=== PATIENT | female | born 2000 | race American Indian/Alaskan Native ===

== ENCOUNTER 2019-02-28 17:03 | Outpatient (CLI) | payer MEDICAID ==
[2019-02-28 17:43] VITALS: BP 136/88
== END 2019-02-28 18:20 | disposition home or self-care (01) ==
LOC: TRG 17:03
PROVIDERS: ATTEND Obstetrics & Gynecology
DX: O47.1 False labor at or after 37 completed weeks of gestation (principal); Z3A.38 38 weeks gestation of pregnancy
CPT/HCPCS: 59025

== ENCOUNTER 2020-03-09 09:55 | Emergency (ER) | payer MEDICAID, OTHER ==
[2020-03-09] MEDS ORDERED: ACETAMINOPHEN 325 MG TAB PO ONE (15:20)
--- NOTE | 2020-03-09 15:22 | Emergency Department Report ---
ED General Adult HPI - General Chief complaint: Weakness Stated complaint: JEREMY/CHILLS Time Seen by Provider: 03/09/20 15:15 Source: patient, EMS Mode of arrival: Ambulatory Limitations: No Limitations - History of Present Illness Initial comments: 19-year-old female complaining of left flank flank pain. Chest pain with deep breaths only. She reports a history of kidney stones. She is complains of nausea but no vomiting and no diarrhea and no abdominal pain just left flank pain. She had reports no recent illness she is not on any control and no recent surgeries. She denies cough she denies sore throat she denies any urinary symptoms and no URI symptoms her pain is a 7/10. Patient in no acute distress -: days(s) (3) Radiation: non-radiation, flank (Left) Quality: aching Improves with: none Worsens with: none Associated Symptoms: chest pain (Chest pain with inspiration only), nausea/ vomiting. denies: cough, diaphoresis, fever/chills, headaches, loss of appetite, malaise, rash, seizure, shortness of breath, syncope Treatments Prior to Arrival: none - Related Data Previous Rx's Medication Instructions Recorded Last Taken Type HYDROcodone/APAP 5-325 [[place] 2 each PO Q6H PRN 28 Days tablet 12/12/13 Unknown Rx 5-325 mg TAB] Ibuprofen [Motrin 600 MG tab] 600 mg PO Q6HR #30 tablet 12/12/13 Unknown Rx Vit-Fe Fumar-FA [ 1 each PO QDAY #60 tablet 12/12/13 Unknown Rx Vitamin] DOXYCYCLINE Hyclate [Vibramycin 100 mg PO Q12HR #14 capsule 01/28/18 Unknown Rx CAP] Naproxen [Naprosyn] 500 mg PO BID #20 tablet 01/28/18 Unknown Rx traMADoL [Ultram] 50 mg PO Q6HR PRN #7 tablet 01/28/18 Unknown Rx cephALEXin [Keflex] 500 mg PO Q12HR #14 cap 03/09/20 Unknown Rx Allergies Allergy/AdvReac Type Severity Reaction Status Date / Time Latex, Natural Rubber AdvReac Severe Anaphylaxis Verified 02/28/19 18:11 iv contrast Allergy Severe Shortness Uncoded 02/28/19 18:11 of Breath ED Review of Systems ROS: Stated complaint: JEREMY/CHILLS Other details as noted in HPI Comment: All other systems reviewed and negative Constitutional: malaise. denies: chills, fever Eyes: denies: eye pain, vision change ENT: denies: ear pain, throat pain, dental pain, hearing loss Respiratory: denies: cough, orthopnea, shortness of breath, SOB with exertion, wheezing Cardiovascular: denies: palpitations, dyspnea on exertion, orthopnea, edema, syncope, paroxysmal nocturnal dyspnea, other Endocrine: no symptoms reported Gastrointestinal: other (Left flank pain) Genitourinary: denies: urgency, dysuria, hematuria, discharge Musculoskeletal: denies: back pain Neurological: denies: headache, weakness, numbness, paresthesias Psychiatric: denies: anxiety, depression, auditory hallucinations, visual hallucinations, homicidal thoughts ED Past Medical Hx - Past Medical History Previous Medical History?: Yes Hx Hypertension: No Hx Congestive Heart Failure: No Hx Diabetes: No Hx Deep Vein Thrombosis: No Hx Renal Disease: No Hx Sickle Cell Disease: No Hx Seizures: No Hx Kidney Stones: Yes Hx Asthma: Yes Hx COPD: No Additional medical history: bronchitis, Vagianl delivery x 1 - Surgical History Past Surgical History?: Yes Hx Cholecystectomy: Yes Additional Surgical History: x 1, Lithotripsy - Social History Smoking Status: Current Every Day Smoker Substance Use Type: Alcohol - Medications Home Medications: Home Medications Medication Instructions Recorded Confirmed Last Taken Type HYDROcodone/APAP 5-325 [[place] 2 each PO Q6H PRN 28 Days tablet 12/12/13 Unknown Rx 5-325 mg TAB] Ibuprofen [Motrin 600 MG tab] 600 mg PO Q6HR #30 tablet 12/12/13 Unknown Rx Vit-Fe Fumar-FA [ 1 each PO QDAY #60 tablet 12/12/13 Unknown Rx Vitamin] DOXYCYCLINE Hyclate [Vibramycin 100 mg PO Q12HR #14 capsule 01/28/18 Unknown Rx CAP] Naproxen [Naprosyn] 500 mg PO BID #20 tablet 01/28/18 Unknown Rx traMADoL [Ultram] 50 mg PO Q6HR PRN #7 tablet 01/28/18 Unknown Rx cephALEXin [Keflex] 500 mg PO Q12HR #14 cap 03/09/20 Unknown Rx ED Physical Exam - General Limitations: No Limitations General appearance: alert, in no apparent distress - Head Head exam: Present: atraumatic - Eye Eye exam: Present: normal appearance - ENT ENT exam: Present: normal exam, mucous membranes moist - Neck Neck exam: Present: normal inspection. Absent: lymphadenopathy - Respiratory Respiratory exam: Present: normal lung sounds bilaterally, other (No report reproducible chest pain). Absent: respiratory distress, wheezes, rales, rhonchi, chest wall tenderness, accessory muscle use, decreased breath sounds, prolonged expiratory - Cardiovascular Cardiovascular Exam: Present: regular rate, normal rhythm, normal heart sounds - GI/Abdominal GI/Abdominal exam: Present: normal bowel sounds, other (Left flank pain). Absent: tenderness, guarding, rebound, rigid - Extremities Exam Extremities exam: Present: normal inspection, normal capillary refill - Back Exam Back exam: Present: normal inspection. Absent: CVA tenderness (R), CVA tenderness (L) - Neurological Exam Neurological exam: Present: alert, oriented X3 - Psychiatric Psychiatric exam: Present: normal affect - Skin Skin exam: Present: warm, dry, intact, normal color. Absent: rash ED Course Vital Signs 03/09/20 03/09/20 10:24 15:49 Temperature 99.5 F 98.4 F Pulse Rate 93 H 89 Respiratory 18 17 Rate Blood Pressure 115/58 Blood Pressure 114/92 [Left] O2 Sat by Pulse 98 99 Oximetry - Reevaluation(s) Reevaluation #1: 03/09/20 17:28 Patient in no acute distress denies any pain she is not short of breath no chest pain all findings discussed with patient and she is ready for discharge home ED Medical Decision Making - Lab Data Result diagrams: 03/09/20 16:51 03/09/20 16:51 - Radiology Data Radiology results: report reviewed CT ABDOMEN AND PELVIS WITHOUT CONTRAST INDICATION / CLINICAL INFORMATION: Left flank pain. TECHNIQUE: Axial CT images were obtained through the abdomen and pelvis without IV contrast. All CT scans at this location are performed using CT dose reduction for ALARA by means of automated exposure control. COMPARISON: None available. FINDINGS: LOWER CHEST: No significant abnormality. LIVER: No significant abnormality. GALLBLADDER: Surgically absent. PANCREAS: No significant abnormality. SPLEEN: No significant abnormality. ADRENALS: No significant abnormality. KIDNEYS / URETERS: There is mild right renal atrophy. No nephroureterolithiasis or obstructive uropathy is identified bilaterally. URINARY BLADDER: No significant abnormality. REPRODUCTIVE ORGANS: No significant abnormality. STOMACH / SMALL BOWEL: No significant abnormality. COLON: No significant abnormality. APPENDIX: No significant abnormality. PERITONEUM: No free fluid. No free air. No fluid collection. LYMPH NODES: No significant adenopathy. AORTA / ARTERIES: No significant abnormality. IVC / VEINS: No significant abnormality. SKELETAL SYSTEM: No significant abnormality. ADDITIONAL FINDINGS: None. IMPRESSION: 1. No acute abdominopelvic abnormality. Specifically, no nephroureterolithiasis or obstructive uropathy. 2. Mild right renal atrophy. - Medical Decision Making This 19-year-old female presented with complaint of left flank pain and pain when in her chest when she takes a deep breath only she is no recent illness she is not currently taking any control her lungs are clear she currently do es not have any chest pain with inspiration she does have a past medical history of kidney stones she did report nausea but no vomiting or diarrhea or fever. Blood work showed no acute findings. Urinalysis is positive for urinary tract infection. CT of the abdomen and pelvis without contrast there is no nephrolithiasis. Patient is being treated for urinary tract infection with outpatient follow-up with primary care doctor or Dr. Cardenas - Differential Diagnosis Kidney stone UTI Critical care attestation.: If time is entered above; I have spent that time in minutes in the direct care of this critically ill patient, excluding procedure time. ED Disposition Clinical Impression: UTI (urinary tract infection) Qualifiers: Urinary tract infection type: acute cystitis Hematuria presence: without hematuria Qualified Code(s): N30.00 - Acute cystitis without hematuria Disposition: DC-01 TO HOME OR SELFCARE Is pt being admited?: No Does the pt Need Aspirin: No Condition: Stable Instructions: Urinary Tract Infection, Adult Additional Instructions: Drink plenty of fluids at least 6 to 8 glasses of water per day. Decrease your intake of sodas and carbonated drinks. Do not hold your urine. P immediately after sex. Take all antibiotic as prescribed to you until finished. Follow-up with your primary care doctor or Dr. Cardenas in 3 to 5 days. The CAT scan t hat was done today shows no signs of kidney stone. Take [id number] Advil or Tylenol as directed by package insert for pain Prescriptions: cephALEXin [Keflex] 500 mg PO Q12HR #14 cap Referrals: SULY BROWN MD [Primary Care Provider] - 3-5 Days Time of Disposition: 17:25
[2020-03-09 15:49] VITALS: BP 114/92
[2020-03-09 16:12] LABS: Bilirubin,Urine NEG (Negative); Blood,Urine NEG (Negative); Color,Urine Yellow (Yellow); Mucus,Urine 3+ /HPF; Urobilinogen,Urine < 2.0 mg/dL (<2.0)
[2020-03-09 16:13] LABS: HCG Qualitative,Urine Negative (Negative)
--- NOTE | 2020-03-09 16:54 | Cat Scan Report ---
CT ABDOMEN AND PELVIS WITHOUT CONTRAST INDICATION / CLINICAL INFORMATION: Left flank pain. TECHNIQUE: Axial CT images were obtained through the abdomen and pelvis without IV contrast. All CT scans at [facility] location are performed using CT dose reduction for ALARA by means of automated exposure control. COMPARISON: None available. FINDINGS: LOWER CHEST: No significant abnormality. LIVER: No significant abnormality. GALLBLADDER: Surgically absent. PANCREAS: No significant abnormality. SPLEEN: No significant abnormality. ADRENALS: No significant abnormality. KIDNEYS / URETERS: There is mild right renal atrophy. No nephroureterolithiasis or obstructive uropat hy is identified bilaterally. URINARY BLADDER: No significant abnormality. REPRODUCTIVE ORGANS: No significant abnormality. STOMACH / SMALL BOWEL: No significant abnormality. COLON: No significant abnormality. APPENDIX: No significant abnormality. PERITONEUM: No free fluid. No free air. No fluid collection. LYMPH NODES: No significant adenopathy. AORTA / ARTERIES: No significant abnormality. IVC / VEINS: No significant abnormality. SKELETAL SYSTEM: No significant abnormality. ADDITIONAL FINDINGS: None. IMPRESSION: 1. No acute abdominopelvic abnormality. Specifically, no nephroureterolithiasis or obstructive uropat hy. 2. Mild right renal atrophy. Signer Name: Yasmani Wright MD Signed: 03/09/2020 4:50 PM Workstation Name: [id number]
[2020-03-09 17:08] LABS: Hemoglobin 14.4 gm/dl (10.1-14.3); Mean Corpuscular HGB Conc 33 % (30-34); Mean Corpuscular Volume 90 fl (79-97); Platelet Count 183 K/mm3 (140-440); Red Cell Distribution Width 14.1 % (13.2-15.2)
[2020-03-09 17:21] LABS: Blood Urea Nitrogen 12 mg/dL (7-17); Calcium 9.8 mg/dL (8.4-10.2); Hemolysis Index 14
[2020-03-09 17:43] LABS: BUN/Creatinine Ratio 17
== END 2020-03-09 17:47 | disposition home or self-care (01) ==
LOC: ED 09:55
DX: N39.0 Urinary tract infection, site not specified (principal); J45.909 Unspecified asthma, uncomplicated; F17.200 Nicotine dependence, unspecified, uncomplicated; Z90.49 Acquired absence of other specified parts of digestive tract; Z98.890 Other specified postprocedural states
CPT/HCPCS: 36415; 74176; 80048; 81001; 81025; 85027; 87086

== ENCOUNTER 2020-03-10 10:26 | Emergency (ER) | payer OTHER ==
[2020-03-10] MEDS ORDERED: ONDANSETRON 4 MG ODT TAB PO ONE (11:56)
[2020-03-10] MEDS ORDERED: IPRATROPIUM/ALBUTEROL SULFATE 3 ML AMPUL.NEB IH ONE (11:56)
[2020-03-10] MEDS ORDERED: dexAMETHasone 20 MG/5 ML VIAL IV ONE (11:56)
--- NOTE | 2020-03-10 11:58 | Emergency Department Report ---
- General Chief Complaint: Dyspnea/Respdistress Stated Complaint: JEREMY Time Seen by Provider: 03/10/20 11:56 Source: patient Mode of arrival: Wheelchair Limitations: No Limitations - History of Present Illness Initial Comments: Patient is a 19-year-old female presents emergency room with points of shortness of breath that began 3 days ago. She has associated occasional dry cough, chills, vomiting, diarrhea, decreased appetite, generalized body aches. She denies any fever, sore throat, ear pain, dysuria, chest pain, abdominal pain. She has a past medical history of asthma but does not use anything at home. She has an allergy to IV dye and latex. Last menstrual cycle 03/04/2020. She was evaluated in the emergency department yesterday for similar symptoms and had stable labs, CT abdomen pelvis 1. No acute abdominopelvic abnormality. Specifically, no nephroureterolithiasis or obstructive uropathy. 2. Mild right renal atrophy. , UA shows evidence of mild UTI. She presents today secondary to shortness of breath. - Related Data Previous Rx's Medication Instructions Recorded Last Taken Type HYDROcodone/APAP 5-325 [[place] 2 each PO Q6H PRN 28 Days tablet 12/12/13 Unknown Rx 5-325 mg TAB] Ibuprofen [Motrin 600 MG tab] 600 mg PO Q6HR #30 tablet 12/12/13 Unknown Rx Vit-Fe Fumar-FA [ 1 each PO QDAY #60 tablet 12/12/13 Unknown Rx Vitamin] DOXYCYCLINE Hyclate [Vibramycin 100 mg PO Q12HR #14 capsule 01/28/18 Unknown Rx CAP] Naproxen [Naprosyn] 500 mg PO BID #20 tablet 01/28/18 Unknown Rx traMADoL [Ultram] 50 mg PO Q6HR PRN #7 tablet 01/28/18 Unknown Rx cephALEXin [Keflex] 500 mg PO Q12HR #14 cap 03/09/20 Unknown Rx Albuterol Sulfate [Proventil Hfa] 6.7 gm IH TID PRN #1 hfa.aer.ad 03/10/20 Unknown Rx Azithromycin [Zithromax TAB] 250 mg PO QDAY 5 Days #6 tablet 03/10/20 Unknown Rx Prednisone [predniSONE 10 mg 10 mg PO .TAPER #1 tab.ds.pk 03/10/20 Unknown Rx (6-Day Pack, 21 Tabs)] Allergies Allergy/AdvReac Type Severity Reaction Status Date / Time Latex, Natural Rubber AdvReac Severe Anaphylaxis Verified 02/28/19 18:11 iv contrast Allergy Severe Shortness Uncoded 02/28/19 18:11 of Breath ED Review of Systems ROS: Stated complaint: JEREMY Other details as noted in HPI Comment: All other systems reviewed and negative ED Past Medical Hx - Past Medical History Previous Medical History?: Yes Hx Hypertension: No Hx Congestive Heart Failure: No Hx Diabetes: No Hx Deep Vein Thrombosis: No Hx Renal Disease: No Hx Sickle Cell Disease: No Hx Seizures: No Hx Kidney Stones: Yes Hx Asthma: Yes Hx COPD: No Additional medical history: bronchitis, Vagianl delivery x 1 - Surgical History Past Surgical History?: Yes Hx Cholecystectomy: Yes Additional Surgical History: x 1, Lithotripsy - Social History Smoking Status: Current Every Day Smoker Substance Use Type: Alcohol - Medications Home Medications: Home Medications Medication Instructions Recorded Confirmed Last Taken Type HYDROcodone/APAP 5-325 [[place] 2 each PO Q6H PRN 28 Days tablet 12/12/13 Unknown Rx 5-325 mg TAB] Ibuprofen [Motrin 600 MG tab] 600 mg PO Q6HR #30 tablet 12/12/13 Unknown Rx Vit-Fe Fumar-FA [ 1 each PO QDAY #60 tablet 12/12/13 Unknown Rx Vitamin] DOXYCYCLINE Hyclate [Vibramycin 100 mg PO Q12HR #14 capsule 01/28/18 Unknown Rx CAP] Naproxen [Naprosyn] 500 mg PO BID #20 tablet 01/28/18 Unknown Rx traMADoL [Ultram] 50 mg PO Q6HR PRN #7 tablet 01/28/18 Unknown Rx cephALEXin [Keflex] 500 mg PO Q12HR #14 cap 03/09/20 Unknown Rx Albuterol Sulfate [Proventil Hfa] 6.7 gm IH TID PRN #1 hfa.aer.ad 03/10/20 Unknown Rx Azithromycin [Zithromax TAB] 250 mg PO QDAY 5 Days #6 tablet 03/10/20 Unknown Rx Prednisone [predniSONE 10 mg 10 mg PO .TAPER #1 tab.ds.pk 03/10/20 Unknown Rx (6-Day Pack, 21 Tabs)] ED Physical Exam - General Limitations: No Limitations General appearance: alert, in no apparent distress - Head Head exam: Present: atraumatic, normocephalic - Eye Eye exam: Present: normal appearance - ENT ENT exam: Present: mucous membranes moist - Respiratory Respiratory exam: Present: wheezes (very mild expiratory). Absent: respiratory distress, rales, rhonchi, stridor, chest wall tenderness, accessory muscle use, decreased breath sounds, prolonged expiratory - Cardiovascular Cardiovascular Exam: Present: normal rhythm, tachycardia, normal heart sounds. Absent: systolic murmur, diastolic murmur, rubs, gallop - Neurological Exam Neurological exam: Present: alert, oriented X3 - Psychiatric Psychiatric exam: Present: normal affect, normal mood - Skin Skin exam: Present: warm, dry, intact ED Course Vital Signs 03/10/20 03/10/20 03/10/20 10:29 14:27 16:55 Temperature 98.6 F 99.3 F Pulse Rate 128 H 121 H 105 H Respiratory 28 H 22 20 Rate Blood Pressure 114/64 Blood Pressure 137/94 124/84 [Right] O2 Sat by Pulse 100 99 99 Oximetry ED Medical Decision Making - Lab Data Result diagrams: 03/10/20 14:38 03/10/20 14:38 Lab Results 03/10/20 03/10/20 03/10/20 Range/Units 14:38 14:38 14:38 WBC 10.4 (4.5-11.0) K/mm3 RBC 4.80 (3.65-5.03) M/mm3 Hgb 14.3 (10.1-14.3) gm/dl Hct 42.3 (30.3-42.9) % MCV 88 (79-97) fl MCH 30 (28-32) pg MCHC 34 (30-34) % RDW 14.0 (13.2-15.2) % Plt Count 185 (140-440) K/mm3 Lymph % (Auto) 8.6 L (13.4-35.0) % Bent % (Auto) 2.3 (0.0-7.3) % Eos % (Auto) 0.0 (0.0-4.3) % Baso % (Auto) 0.2 (0.0-1.8) % Lymph # (Auto) 0.9 L (1.2-5.4) K/mm3 Bent # (Auto) 0.2 (0.0-0.8) K/mm3 Eos # (Auto) 0.0 (0.0-0.4) K/mm3 Baso # (Auto) 0.0 (0.0-0.1) K/mm3 Seg Neutrophils % 88.9 H (40.0-70.0) % Seg Neutrophils # 9.3 H (1.8-7.7) K/mm3 D-Dimer < 135.00 (0-234) ng/mlDDU Sodium 138 (137-145) mmol/L Potassium 3.8 (3.6-5.0) mmol/L Chloride 102.4 (98-107) mmol/L Carbon Dioxide 20 L (22-30) mmol/L Anion Gap 19 mmol/L BUN 14 (7-17) mg/dL Creatinine 0.8 (0.6-1.2) mg/dL Estimated GFR > 60 ml/min BUN/Creatinine Ratio 18 % Glucose 104 H (65-100) mg/dL Calcium 10.1 (8.4-10.2) mg/dL Total Bilirubin 0.20 (0.1-1.2) mg/dL AST 20 (5-40) units/L ALT 19 (7-56) units/L Alkaline Phosphatase 83 (35-129) units/L Troponin T (0.00-0.029) ng/mL Total Protein 8.4 H (6.3-8.2) g/dL Albumin 4.5 (3.9-5) g/dL Albumin/Globulin Ratio 1.2 % HCG, Qual (Negative) 03/10/20 03/10/20 Range/Units 14:38 14:50 WBC (4.5-11.0) K/mm3 RBC (3.65-5.03) M/mm3 Hgb (10.1-14.3) gm/dl Hct (30.3-42.9) % MCV (79-97) fl MCH (28-32) pg MCHC (30-34) % RDW (13.2-15.2) % Plt Count (140-440) K/mm3 Lymph % (Auto) (13.4-35.0) % Bent % (Auto) (0.0-7.3) % Eos % (Auto) (0.0-4.3) % Baso % (Auto) (0.0-1.8) % Lymph # (Auto) (1.2-5.4) K/mm3 Bent # (Auto) (0.0-0.8) K/mm3 Eos # (Auto) (0.0-0.4) K/mm3 Baso # (Auto) (0.0-0.1) K/mm3 Seg Neutrophils % (40.0-70.0) % Seg Neutrophils # (1.8-7.7) K/mm3 D-Dimer (0-234) ng/mlDDU Sodium (137-145) mmol/L Potassium (3.6-5.0) mmol/L Chloride (98-107) mmol/L Carbon Dioxide (22-30) mmol/L Anion Gap mmol/L BUN (7-17) mg/dL Creatinine (0.6-1.2) mg/dL Estimated GFR ml/min BUN/Creatinine Ratio % Glucose (65-100) mg/dL Calcium (8.4-10.2) mg/dL Total Bilirubin (0.1-1.2) mg/dL AST (5-40) units/L ALT (7-56) units/L Alkaline Phosphatase (35-129) units/L Troponin T < 0.010 (0.00-0.029) ng/mL Total Protein (6.3-8.2) g/dL Albumin (3.9-5) g/dL Albumin/Globulin Ratio % HCG, Qual Negative (Negative) - EKG Data EKG shows normal: sinus rhythm, axis, intervals, QRS complexes, ST-T waves Rate: tachycardia (104) - Radiology Data Radiology results: report reviewed Ordering Physician: RON MOHAMUD Date of Service: 03/10/20 Procedure(s): XR chest routine 2V Accession Number(s): [id number] cc: RON MOHAMUD Fluoro Time In Minutes: CHEST 2 VIEWS INDICATION / CLINICAL INFORMATION: sob. COMPARISON: None available. FINDINGS: SUPPORT DEVICES: None. HEART / MEDIASTINUM: No significant abnormality. LUNGS / PLEURA: No significant pulmonary or pleural abnormality. No pneumothorax. ADDITIONAL FINDINGS: No significant additional findings. IMPRESSION: No acute cardiopulmonary abnormality. Signer Name: Dell Wright MD Signed: 03/10/2020 12:16 PM Workstation Name: [id number] Transcribed By: SS Dictated By: DELL WRIGHT Electronically Authenticated By: DELL WRIGHT Signed Date/Time: 03/10/201215 DD/ 15 TD/TT: - Medical Decision Making Patient is a 19-year-old female presents emergency room with points of shortness of breath that began 3 days ago. She has associated occasional dry cough, chills, vomiting, diarrhea, decreased appetite, generalized body aches. She denies any fever, sore throat, ear pain, dysuria, chest pain, abdominal pain. She has a past medical history of asthma but does not use anything at home. She has an allergy to IV dye and latex. Last menstrual cycle 03/04/2020. She was evaluated in the emergency department yesterday for similar symptoms and had stable labs, CT abdomen pelvis 1. No acute abdominopelvic abnormality. Specifically, no nephroureterolithiasis or obstructive uropathy. 2. Mild right renal atrophy. , UA shows evidence of mild UTI. She presents today secondary to shortness of breath. Initial vitals with tachycardia. On exam she has very mild expiratory wheezing bilaterally.CXR: No acute cardiopulmonary abnormality. EKG with sinus tach at 104, otherwise EKG is normal. Labs are normal. D-dimer is negative. Troponin is negative. Patient given 1 L of fluid and her heart rate significantly improved. Patient given a neb treatment and steroids and she was feeling much better and her shortness of breath is also improved. Her wheezing had completely resolved on reexamination. she was ambulated in the emergency department and maintained oxygen saturation of 95% or higher. Patient given prescription for prednisone, albuterol, azithromycin. Patient is presenting with the symptoms during COVID-19 pandemic, discussed COVID-19 with patient, discuss strict return precautions, discussed outpatient testing, discussed self quarantine. Advised patient Please take medication as prescribed. Please increase your fluid intake over the next several days. May take Tylenol as needed for fever or body aches. Follow-up with a primary care doctor for reexamination. Return to emergency room immediately for any new or worsening symptoms including but not limited to difficulty breathing, shortness of breath, severe chest pain, unable to tolerate by mouth intake, etc. Please self quarantine for 10 days from the onset of your symptoms. Please do not go out in public. If you are around others at home please wear a mask. If you need to cough or sneeze please do so in a napkin and immediately throw it away and immediately wash your hands. Wash your hands frequently. Wipe everything down. Recommend for you to get COVID-19 testing, may have this done at primary care doctor, health department, [facility] testing center. Critical care attestation.: If time is entered above; I have spent that time in minutes in the direct care of this critically ill patient, excluding procedure time. ED Disposition Clinical Impression: Acute bronchitis Qualifiers: Bronchitis organism: unspecified organism Qualified Code(s): J20.9 - Acute bronchitis, unspecified Disposition: - TO HOME OR SELFCARE Is pt being admited?: No Does the pt Need Aspirin: No Condition: Stable Instructions: Acute Bronchitis, Adult, [id number], COVID-19: How to Protect Yourself and Others - CDC, COVID-19, Prevent the Spread of COVID-19 if You Are Sick - CDC, Acute Bronchitis (ED) Additional Instructions: Please take medication as prescribed. Please increase your fluid intake over the next several days. May take Tylenol as needed for fever or body aches. Follow-up with a primary care doctor for reexamination. Return to emergency room immediately for any new or worsening symptoms including but not limited to difficulty breathing, shortness of breath, severe chest pain, unable to tolerate by mouth intake, etc. Please self quarantine for 10 days from the onset of your symptoms. Please do not go out in public. If you are around others at home please wear a mask. If you need to cough or sneeze please do so in a napkin and immediately throw it away and immediately wash your hands. Wash your hands frequently. Wipe everything down. Recommend for you to get COVID-19 testing, may have this done at primary care doctor, health department, [facility] testing center. Prescriptions: Prednisone [predniSONE 10 mg (6-Day Pack, 21 Tabs)] 10 mg PO .TAPER #1 tab.ds.pk Albuterol Sulfate [Proventil Hfa] 6.7 gm IH TID PRN #1 hfa.aer.ad PRN Reason: Shortness Of Breath Azithromycin [Zithromax TAB] 250 mg PO QDAY 5 Days #6 tablet Referrals: PRIMARY CARE, [Primary Care Provider] - 2-3 Days OMER BRICEÑO MD [Staff Physician] - 2-3 Days [facility] [Provider Group] - 2-3 Days Time of Disposition: 16:02 Print Language: JAPANESE
--- NOTE | 2020-03-10 12:21 | XRay Report ---
CHEST 2 VIEWS INDICATION / CLINICAL INFORMATION: sob. COMPARISON: None available. FINDINGS: SUPPORT DEVICES: None. HEART / MEDIASTINUM: No significant abnormality. LUNGS / PLEURA: No significant pulmonary or pleural abnormality. No pneumothorax. ADDITIONAL FINDINGS: No significant additional findings. IMPRESSION: No acute cardiopulmonary abnormality. Signer Name: Yasmani Wright MD Signed: 03/10/2020 12:16 PM Workstation Name: [id number]
[2020-03-10] MEDS ORDERED: SODIUM CHLORIDE 0.9% 1000 ML 1,000 ML IV ONE (14:30)
[2020-03-10 14:54] LABS: Basophils % (Auto) 0.2 % (0.0-1.8); Hematocrit 42.3 % (30.3-42.9); Hemoglobin 14.3 gm/dl (10.1-14.3); Lymphocytes # (Auto) 0.9 K/mm3 (1.2-5.4); Lymphocytes % (Auto) 8.6 % (13.4-35.0); Mean Corpuscular HGB Conc 34 % (30-34); Mean Corpuscular Volume 88 fl (79-97); Monocytes # (Auto) 0.2 K/mm3 (0.0-0.8); Monocytes % (Auto) 2.3 % (0.0-7.3); Platelet Count 185 K/mm3 (140-440)
[2020-03-10 15:11] LABS: Alanine Aminotransferase 19 units/L (7-56); Albumin 4.5 g/dL (3.9-5); BUN/Creatinine Ratio 18; Blood Urea Nitrogen 14 mg/dL (7-17); Calcium 10.1 mg/dL (8.4-10.2); Hemolysis Index 6
[2020-03-10 17:07] VITALS: BP 114/64
== END 2020-03-10 17:08 | disposition home or self-care (01) ==
LOC: ED 10:26
DX: J45.909 Unspecified asthma, uncomplicated (principal); F17.200 Nicotine dependence, unspecified, uncomplicated; Z90.49 Acquired absence of other specified parts of digestive tract; Z98.890 Other specified postprocedural states; Z79.1 Long term (current) use of non-steroidal anti-inflammatories (NSAID); Z79.899 Other long term (current) drug therapy; Z91.040 Latex allergy status; Z88.8 Allergy status to other drugs, medicaments and biological substances
CPT/HCPCS: 36415; 71046; 80053; 84484; 84703; 85025; 85379; 93005; 94640; 96361; 96374; 99284; J1100; J7030; Q0162

== ENCOUNTER 2020-08-05 13:41 | Emergency (ER) | payer OTHER ==
[2020-08-05 13:52] VITALS: BP 108/61
[2020-08-05] MEDS ORDERED: SODIUM CHLORIDE 0.9% 1000 ML 1,000 ML IV ONE (14:46)
[2020-08-05] MEDS ORDERED: METOCLOPRAMIDE 10 MG/2 ML INJ IV ONE (14:46)
[2020-08-05 15:03] LABS: Basophils % (Auto) 0.4 % (0.0-1.8); Eosinophils % (Auto) 0.1 % (0.0-4.3); Hematocrit 43.4 % (30.3-42.9); Hemoglobin 14.7 gm/dl (10.1-14.3); Lymphocytes # (Auto) 2.4 K/mm3 (1.2-5.4); Lymphocytes % (Auto) 25.6 % (13.4-35.0); Mean Corpuscular HGB Conc 34 % (30-34); Mean Corpuscular Volume 91 fl (79-97); Monocytes # (Auto) 0.8 K/mm3 (0.0-0.8); Monocytes % (Auto) 8.6 % (0.0-7.3); Platelet Count 179 K/mm3 (140-440); Red Blood Count 4.79 M/mm3 (3.65-5.03); Red Cell Distribution Width 13.3 % (13.2-15.2)
[2020-08-05 15:13] LABS: BUN/Creatinine Ratio 14; Blood Urea Nitrogen 11 mg/dL (7-17); Calcium 10.1 mg/dL (8.4-10.2); Hemolysis Index 9
--- NOTE | 2020-08-05 16:03 | Emergency Department Report ---
Vomiting/Diarrhea - HPI Chief Complaint: Nausea/Vomiting/Diarrhea Stated Complaint: N/V Time Seen by Provider: 08/05/20 14:04 Duration: 5 Days Severity: mild Nausea/Vomiting Severity: Mild Diarrhea Severity: None Pain Severity: None Symptoms: Yes Able to Tolerate Fluids, No Watery Diarrhea, No Bloody diarrhea, No Fever, No Recent Unusual Foods, No Recent Untreated Water, No Recent use of Antibiotics, No Family w/ Similar Symptoms, No Contacts w/ Similar Symptoms, No Rash, No Hematuria, No Recent URI Symptoms Other History: This is a 20-year-old female nontoxic, well nourished in appearance, no acute signs of distress presents to the ED with c/o of nausea and vomiting 5 days. Patient stated she is currently about 6 weeks . Patient denies any vaginal bleeding. Denies any urinary symptoms. Denies any pelvic, flank, back or abdominal pain. Patient denies any other complaints or symptoms. Patient describes vomiting as food content. Patient denies any abdominal pain, chest pain, short of breath, fever, chills, headache, stiff neck, numbness or tingling. Patient denies any diarrhea or constipation. Denies any blood in stool. Patient denies any recent travels. Patient denies any drug allergies or significant past medical history. ED Review of Systems ROS: Stated complaint: N/V Other details as noted in HPI Comment: All other systems reviewed and negative Constitutional: denies: chills, fever Eyes: denies: eye pain, eye discharge, vision change ENT: denies: ear pain, throat pain Respiratory: denies: cough, shortness of breath, wheezing Cardiovascular: denies: chest pain, palpitations Endocrine: no symptoms reported Gastrointestinal: nausea, vomiting. denies: abdominal pain, diarrhea, constipation, hematemesis, melena, hematochezia Genitourinary: denies: urgency, dysuria, discharge Musculoskeletal: denies: back pain, joint swelling, arthralgia Skin: denies: rash, lesions Neurological: denies: headache, weakness, paresthesias Psychiatric: denies: anxiety, depression Hematological/Lymphatic: denies: easy bleeding, easy bruising ED Past Medical Hx - Past Medical History Previous Medical History?: Yes Hx Hypertension: No Hx Congestive Heart Failure: No Hx Diabetes: No Hx Deep Vein Thrombosis: No Hx Renal Disease: No Hx Sickle Cell Disease: No Hx Seizures: No Hx Kidney Stones: Yes Hx Asthma: Yes Hx COPD: No Additional medical history: bronchitis, Vagianl delivery x 1 - Surgical History Past Surgical History?: Yes Hx Cholecystectomy: Yes Additional Surgical History: x 1, Lithotripsy - Social History Smoking Status: Current Every Day Smoker Substance Use Type: Alcohol - Medications Home Medications: Home Medications Medication Instructions Recorded Confirmed Last Taken Type HYDROcodone/APAP 5-325 [[place] 2 each PO Q6H PRN 28 Days tablet 12/12/13 Unknown Rx 5-325 mg TAB] Ibuprofen [Motrin 600 MG tab] 600 mg PO Q6HR #30 tablet 12/12/13 Unknown Rx Vit-Fe Fumar-FA [ 1 each PO QDAY #60 tablet 12/12/13 Unknown Rx Vitamin] DOXYCYCLINE Hyclate [Vibramycin 100 mg PO Q12HR #14 capsule 01/28/18 Unknown Rx CAP] Naproxen [Naprosyn] 500 mg PO BID #20 tablet 01/28/18 Unknown Rx traMADoL [Ultram] 50 mg PO Q6HR PRN #7 tablet 01/28/18 Unknown Rx cephALEXin [Keflex] 500 mg PO Q12HR #14 cap 03/09/20 Unknown Rx Albuterol Sulfate [Proventil Hfa] 6.7 gm IH TID PRN #1 hfa.aer.ad 03/10/20 Unknown Rx Azithromycin [Zithromax TAB] 250 mg PO QDAY 5 Days #6 tablet 03/10/20 Unknown Rx Prednisone [predniSONE 10 mg 10 mg PO .TAPER #1 tab.ds.pk 03/10/20 Unknown Rx (6-Day Pack, 21 Tabs)] Metoclopramide [Reglan] 10 mg PO Q12H PRN #12 tab 08/05/20 Unknown Rx 21/Iron Fu/Folic Acid 1 each PO DAILY #30 tablet 08/05/20 Unknown Rx [ Complete Caplet] Vomiting Diarrhea Exam - Exam General: Vital signs noted. No distress. Alert and acting appropriately. HEENT: Yes Moist Mucous Membranes, No Pharyngeal Erythema, No Pharyngeal Exudates, No Rhinorrhea, No Conjuctival Injection, No Frontal Tenderness, No Maxillary Tenderness Neck: No Adenopathy, No Rigidity Lungs: Yes Clear Lung Sounds, Yes Good Air Exchange, No Wheezes, No Stridor, No Cough, No Nasal Flaring, No Retractions, No Use of Accessory Muscles Heart exam: Regular: Yes, Murmur: No, Tachycardia: No Abdomen: Tenderness: No, Peritoneal Signs: No, Distention: No, Hyperactive Bowel sounds: No Skin exam: Rash: No, Edema: No, Normal turgor: Yes Neurologic: Alert and oriented, no deficits. Musculoskeletal: Unremarkable. ED Course Vital Signs 08/05/20 13:51 Temperature 99.3 F Pulse Rate 92 H Respiratory 17 Rate Blood Pressure 108/61 [Right] O2 Sat by Pulse 97 Oximetry - Reevaluation(s) Reevaluation #1: 08/05/20 16:02 Patient is speaking in full sentences with no signs of distress noted. ED Medical Decision Making - Lab Data Result diagrams: 08/05/20 14:35 08/05/20 14:35 - Medical Decision Making This is a 20-year-old female that presents with nausea and vomiting. Patient is stable and was examined by me. There is no abdominal tenderness. Negative signs of symptoms of appendicitis, cholecystitis or acute abdomen. Labs obtained. UA obtained. Vital signs are stable prior to discharge. Patient received Reglan and 1L Normal saline in the ED which patient stated symptoms has resovled and subsided. A by mouth challenge has been obtained and patient tolerated well wit h no nausea vomiting. Patient was also instructed to Follow-up with a [facility] doctor in 3-5 days or if symptoms worsen and continue return to emergency room as soon as possible. At time of discharge, the patient does not seem toxic or ill in appearance. No acute signs of distress noted. Patient agrees to discharge treatment plan of care. No further questions noted by the patient. Critical care attestation.: If time is entered above; I have spent that time in minutes in the direct care of this critically ill patient, excluding procedure time. ED Disposition Clinical Impression: Hyperemesis gravidarum Disposition: DC-01 TO HOME OR SELFCARE Is pt being admited?: No Does the pt Need Aspirin: No Condition: Stable Instructions: Hyperemesis Gravidarum Additional Instructions: Follow-up with a [facility] doctor in 3-5 days or if symptoms worsen and continue return to emergency room as soon as possible. Prescriptions: 21/Iron Fu/Folic Acid [ Complete Caplet] 1 each PO DAILY #30 tablet Metoclopramide [Reglan] 10 mg PO Q12H PRN #12 tab PRN Reason: Nausea Referrals: PRIMARY CARE, [Primary Care Provider] - 3-5 Days [facility] [Provider Group] - 3-5 Days [facility] [Provider Group] - 3-5 Days Forms: Work/School Release Form(ED) Time of Disposition: 16:23
== END 2020-08-05 18:11 | disposition left against medical advice (07) ==
LOC: ED 13:41
DX: O21.0 Mild hyperemesis gravidarum (principal); O99.511 Diseases of the respiratory system complicating pregnancy, first trimester; O99.331 Smoking (tobacco) complicating pregnancy, first trimester; J45.909 Unspecified asthma, uncomplicated; Z91.041 Radiographic dye allergy status; Z79.899 Other long term (current) drug therapy; Z91.040 Latex allergy status; Z88.8 Allergy status to other drugs, medicaments and biological substances; Z90.49 Acquired absence of other specified parts of digestive tract; Z98.890 Other specified postprocedural states; Z3A.01 Less than 8 weeks gestation of pregnancy
CPT/HCPCS: 36415; 80048; 84702; 85025; 96361; 96374; 99283; J2765; J7030

== ENCOUNTER 2020-08-23 07:52 | Emergency (ER) | payer OTHER ==
--- NOTE | 2020-08-23 10:21 | Event Note ---
ED Screening Note ED Screening Note: ABD PAIN/ VOMITING/SPOTTING 9 WEEK PREG 06/26 MIS1 HAS SEEN OB- THEY DIDNT CHECK ME PMH NONE RX NONE PSH GMelinda STONE K STONE This initial assessment/diagnostic orders/clinical plan/treatment(s) is/are subject to change based on patients health status, clinical progression and re- assessment by fellow clinical providers in the ED. Further treatment and workup at subsequent clinical providers discretion. Patient/guardian urged not to elope from the ED as their condition may be serious if not clinically assessed and managed. Initial orders include: BLOOD/UA
[2020-08-23 11:27] LABS: Basophils % (Auto) 0.2 % (0.0-1.8); Hematocrit 43.1 % (30.3-42.9); Hemoglobin 14.4 gm/dl (10.1-14.3); Lymphocytes # (Auto) 1.6 K/mm3 (1.2-5.4); Lymphocytes % (Auto) 25.6 % (13.4-35.0); Mean Corpuscular HGB Conc 33 % (30-34); Mean Corpuscular Volume 89 fl (79-97); Monocytes # (Auto) 0.5 K/mm3 (0.0-0.8); Platelet Count 198 K/mm3 (140-440); Red Blood Count 4.84 M/mm3 (3.65-5.03); Red Cell Distribution Width 13.4 % (13.2-15.2)
[2020-08-23 11:46] LABS: Alanine Aminotransferase 21 units/L (7-56); Albumin 4.7 g/dL (3.9-5); Blood Urea Nitrogen 11 mg/dL (7-17); Calcium 9.9 mg/dL (8.4-10.2); Hemolysis Index 4
[2020-08-23 11:47] LABS: BUN/Creatinine Ratio 18
[2020-08-23] MEDS ORDERED: ONDANSETRON 4 MG/2 ML INJ IV ONE (12:01)
[2020-08-23] MEDS ORDERED: D5W/0.45% NACL 1,000 ML IV SCH (13:00)
--- NOTE | 2020-08-23 13:00 | Emergency Department Report ---
ED Female HPI - General Chief complaint: Nausea/Vomiting/Diarrhea Stated complaint: 9 WKS PREG VOMITING Time Seen by Provider: 08/23/20 12:14 Source: patient Mode of arrival: Ambulatory Limitations: No Limitations - History of Present Illness Initial comments: Patient is a 20-year-old female that comes to the emergency room with vaginal bleeding during . G4 para 2 miscarriage 1 Last menstrual period was 4 7. She states she did have an [facility] appointment but they did nothing but a Pap smear. Patient here to make sure that her baby is okay given the vaginal bleeding. Patient has no tachycardia hypotension or fever. She denies dysuria. She denies vaginal discharge. She denies back pain or abdominal pain. She has not been actively vomiting in triage or ACC - Related Data Previous Rx's Medication Instructions Recorded Last Taken Type Metoclopramide [Reglan] 10 mg PO Q12H PRN #12 tab 08/05/20 Unknown Rx 21/Iron Fu/Folic Acid 1 each PO DAILY #30 tablet 08/05/20 Unknown Rx [ Complete Caplet] Amoxicillin [Trimox CAP] 500 mg PO BID #20 capsule 08/23/20 Unknown Rx Ondansetron [Zofran Odt] 4 mg PO Q8HR PRN #10 tab.rapdis 08/23/20 Unknown Rx Allergies Allergy/AdvReac Type Severity Reaction Status Date / Time Latex, Natural Rubber AdvReac Severe Anaphylaxis Verified 02/28/19 18:11 iv contrast Allergy Severe Shortness Uncoded 02/28/19 18:11 of Breath ED Review of Systems ROS: Stated complaint: 9 WKS PREG VOMITING Other details as noted in HPI Comment: All other systems reviewed and negative ED Past Medical Hx - Past Medical History Previous Medical History?: Yes Hx Hypertension: No Hx Congestive Heart Failure: No Hx Diabetes: No Hx Deep Vein Thrombosis: No Hx Renal Disease: No Hx Sickle Cell Disease: No Hx Seizures: No Hx Kidney Stones: Yes Hx Asthma: Yes Hx COPD: No Additional medical history: bronchitis, Vagianl delivery x 1 - Surgical History Past Surgical History?: Yes Hx Cholecystectomy: Yes Additional Surgical History: x 1, Lithotripsy - Family History Family history: no significant - Social History Smoking Status: Current Every Day Smoker Substance Use Type: Alcohol - Medications Home Medications: Home Medications Medication Instructions Recorded Confirmed Last Taken Type Metoclopramide [Reglan] 10 mg PO Q12H PRN #12 tab 08/05/20 Unknown Rx 21/Iron Fu/Folic Acid 1 each PO DAILY #30 tablet 08/05/20 Unknown Rx [ Complete Caplet] Amoxicillin [Trimox CAP] 500 mg PO BID #20 capsule 08/23/20 Unknown Rx Ondansetron [Zofran Odt] 4 mg PO Q8HR PRN #10 tab.rapdis 08/23/20 Unknown Rx ED Physical Exam - General Limitations: No Limitations General appearance: alert, in no apparent distress - Head Head exam: Present: atraumatic, normocephalic - Eye Eye exam: Present: normal appearance - ENT ENT exam: Present: mucous membranes moist - Neck Neck exam: Present: normal inspection - Respiratory Respiratory exam: Present: normal lung sounds bilaterally. Absent: respiratory distress - Cardiovascular Cardiovascular Exam: Present: regular rate, normal rhythm. Absent: systolic murmur, diastolic murmur, rubs, gallop - GI/Abdominal GI/Abdominal exam: Present: soft, normal bowel sounds - Bi-manual exam: Present: normal bi-manual exam - Extremities Exam Extremities exam: Present: normal inspection - Back Exam Back exam: Present: normal inspection - Neurological Exam Neurological exam: Present: alert, oriented X3 - Psychiatric Psychiatric exam: Present: normal affect, normal mood - Skin Skin exam: Present: warm, dry, intact, normal color. Absent: rash ED Course Vital Signs 08/23/20 08:26 Temperature 99.3 F Pulse Rate 99 H Respiratory 18 Rate Blood Pressure 102/66 [Right] O2 Sat by Pulse 100 Oximetry ED Medical Decision Making - Lab Data Result diagrams: 08/23/20 10:48 08/23/20 10:48 - Radiology Data Radiology results: report reviewed, image reviewed see report - Medical Decision Making Labs 08/23/20 08/23/20 08/23/20 10:48 10:48 10:48 WBC 6.4 RBC 4.84 Hgb 14.4 H Hct 43.1 H MCV 89 MCH 30 MCHC 33 RDW 13.4 Plt Count 198 Lymph % (Auto) 25.6 [place] % (Auto) 7.0 Eos % (Auto) 0.0 Baso % (Auto) 0.2 Lymph # (Auto) 1.6 [place] # (Auto) 0.5 Eos # (Auto) 0.0 Baso # (Auto) 0.0 Seg Neutrophils % 67.2 Seg Neutrophils # 4.3 Sodium 136 L Potassium 4.2 Chloride 98.0 Carbon Dioxide 23 Anion Gap 19 BUN 11 Creatinine 0.6 Estimated GFR > 60 BUN/Creatinine Ratio 18 Glucose 72 Calcium 9.9 Total Bilirubin 0.50 AST 22 ALT 21 Alkaline Phosphatase 63 Total Protein 8.3 H Albumin 4.7 Albumin/Globulin Ratio 1.3 Lipase 28 HCG, Quant Urine Color Urine Turbidity Urine pH Ur Specific [place] Urine Protein Urine Glucose (UA) Urine Ketones Urine Blood Urine Nitrite Urine Bilirubin Urine Urobilinogen Ur Leukocyte Esterase Urine WBC (Auto) Urine RBC (Auto) U Epithel Cells (Auto) Urine Mucus Ur Yeast w Hyphae Urine Yeast (Budding) Blood Type B POSITIVE Ord Rhogam Gestat Weeks Rh pos 08/23/20 08/23/20 10:48 Unknown WBC RBC Hgb Hct MCV MCH MCHC RDW Plt Count Lymph % (Auto) [place] % (Auto) Eos % (Auto) Baso % (Auto) Lymph # (Auto) [place] # (Auto) Eos # (Auto) Baso # (Auto) Seg Neutrophils % Seg Neutrophils # Sodium Potassium Chloride Carbon Dioxide Anion Gap BUN Creatinine Estimated GFR BUN/Creatinine Ratio Glucose Calcium Total Bilirubin AST ALT Alkaline Phosphatase Total Protein Albumin Albumin/Globulin Ratio Lipase HCG, Quant 71251 H Urine Color Yellow Urine Turbidity Slightly-cloudy Urine pH 6.0 Ur Specific [place] 1.032 H Urine Protein 100 mg/dl Urine Glucose (UA) Neg Urine Ketones 80 Urine Blood Neg Urine Nitrite Neg Urine Bilirubin Neg Urine Urobilinogen 2.0 Ur Leukocyte Esterase Mod Urine WBC (Auto) 43.0 H Urine RBC (Auto) 3.0 U Epithel Cells (Auto) 7.0 Urine Mucus 2+ Ur Yeast w Hyphae Few Urine Yeast (Budding) Few Blood Type Ord Rhogam Gestat Weeks Vital Signs 08/23/20 08:26 Temperature 99.3 F Pulse Rate 99 H Respiratory 18 Rate Blood Pressure 102/66 [Right] O2 Sat by Pulse 100 Oximetry Labs noted. hCG noted Ultrasound noted, see report UA noted. Patient hydrated with IV fluids and given antiemetic. She was given Rocephin 1 g for her UTI. Urine culture is pending. I have discussed the finding of today's work-up with the patient and she u nderstands that in 48 hours she will need to see the [facility] for interval follow- up on blood work and ultrasound. She is going home on amoxicillin. If her urine culture is such that it is not sensitive to amoxicillin we need to call her. Patient verbalizes an understanding that we may be calling her to do said. On discharge patient ambulatory, nontoxic [id number], and taking p.o. She verbalizes understanding of her discharge plan of care - Differential Diagnosis ro ab Critical care attestation.: If time is entered above; I have spent that time in minutes in the direct care of this critically ill patient, excluding procedure time. ED Disposition Clinical Impression: , Vomiting affecting , UTI (urinary tract infection) Disposition: TO HOME OR SELFCARE Is pt being admited?: No Does the pt Need Aspirin: No Condition: Stable Instructions: Morning Sickness, [id number], and Urinary Tract Infection Additional Instructions: pelvic rest hydrate well with water follow up with your obgyn on Wednesday for reevaluation of your labs referral below meds as ordered today Prescriptions: Amoxicillin [Trimox CAP] 500 mg PO BID #20 capsule Ondansetron [Zofran Odt] 4 mg PO Q8HR PRN #10 tab.rapdis PRN Reason: Vomiting Referrals: MARILYN ASTORGA MD [Staff Physician] - 3-5 Days Time of Disposition: 15:27
[2020-08-23 13:07] LABS: Bilirubin,Urine NEG (Negative); Blood,Urine NEG (Negative); Color,Urine Yellow (Yellow); Mucus,Urine 2+ /HPF
[2020-08-23] MEDS ORDERED: cefTRIAXone/NS 1 GM/50 ML 1 GM/50 ML BAG IV ONE (14:01)
--- NOTE | 2020-08-23 15:23 | Ultrasound Report ---
FIRSTTRIMESTER OBSTETRIC ULTRASOUND ULTRASOUND OB TRANSVAGINAL HISTORY: Vaginal bleeding during COMPARISON: 01/28/2018 TECHNIQUE: Routine transabdominal and transvaginal OB ultrasound performed. FINDINGS: Uterus: Mildly enlarged measuring 11.5 x 8.2 x 7.5 cm. Gestational Sac: Well-defined oval shape and intrauterine in location. Yolk Sac: Normal in appearance. Fetus/Embryo: [place]-rump length of 2.3 cm, corresponding to an estimated gestational age of 9 weeks 0 days. Embryonic/ anatomy is too small for evaluation. Embryonic/ cardiac activity: 185bpm Placenta: Too small for evaluation. Amniotic fluid volume: Subjectively appropriate for gestational age. Ovaries: The right ovary is normal in size and appearance with normal blood flow, measuring 3.3 x 1. 5 x 3.7 cm. The left ovary contains 2 cysts measuring 3.3 cm and 3.5 cm., The left ovary measures 6. 0 x 3.5 x 4.7 cm. Additional findings: A small subchorionic hemorrhage is identified along the superior border of the g estational sac measuring 2.0 x 1.2 x 3.6 cm. IMPRESSION Viable single intrauterine as described. Small subchorionic hemorrhage. Left ovarian cysts as described. Signer Name: Shubham Mack Jr, MD Signed: 08/23/2020 3:19 PM Workstation Name: [id number]
[2020-08-23 17:55] VITALS: BP 113/82
== END 2020-08-23 17:56 | disposition home or self-care (01) ==
LOC: ED 07:52
DX: O21.8 Other vomiting complicating pregnancy (principal); O23.41 Unspecified infection of urinary tract in pregnancy, first trimester; O99.331 Smoking (tobacco) complicating pregnancy, first trimester; O99.511 Diseases of the respiratory system complicating pregnancy, first trimester; J45.909 Unspecified asthma, uncomplicated; Z79.899 Other long term (current) drug therapy; Z91.040 Latex allergy status; Z98.890 Other specified postprocedural states; Z90.49 Acquired absence of other specified parts of digestive tract; Z3A.09 9 weeks gestation of pregnancy
CPT/HCPCS: 36415; 76801; 76817; 80053; 81001; 83690; 84702; 85025; 86900; 86901; 87086; 96365; 96375; 99284; J0696; J2405

== ENCOUNTER 2020-09-12 20:36 | Emergency (ER) | payer OTHER ==
--- NOTE | 2020-09-12 20:42 | Event Note ---
ED Screening Note ED Screening Note: vag bleed in preg This initial assessment/diagnostic orders/clinical plan/treatment(s) is/are subject to change based on patients health status, clinical progression and re- assessment by fellow clinical providers in the ED. Further treatment and workup at subsequent clinical providers discretion. Patient/guardian urged not to elope from the ED as their condition may be serious if not clinically assessed and managed. Initial orders include: ro ab/ectopic
[2020-09-12 21:11] LABS: Hematocrit 35.1 % (30.3-42.9); Mean Corpuscular HGB Conc 34 % (30-34); Mean Corpuscular Volume 91 fl (79-97); Platelet Count 174 K/mm3 (140-440); Red Blood Count 3.87 M/mm3 (3.65-5.03); Red Cell Distribution Width 13.9 % (13.2-15.2)
[2020-09-12 21:26] LABS: Blood Urea Nitrogen 10 mg/dL (7-17); Calcium 9.4 mg/dL (8.4-10.2); Hemolysis Index 3
[2020-09-12 21:32] LABS: BUN/Creatinine Ratio 14
--- NOTE | 2020-09-12 22:25 | Ultrasound Report ---
ULTRASOUND OBSTETRIC INDICATION / CLINICAL INFORMATION: bleeding. Clinical Gestational Age (GA): 12.0 weeks.days TECHNIQUE: Transvaginal. COMPARISON: 08/23/2020. FINDINGS: GESTATIONAL SAC: Well-defined oval shape and intrauterine in location. YOLK SAC: No significant abnormality. EMBRYO/FETUS: No significant abnormality. - [place]-Rump Length = 5.2 cm = 11.6 weeks.days - Heart Rate, beats per minute (if present) = 170 UTERUS: The uterus measures 14.7 x 8.3 x 8.9 cm. There is a small amount of fluid within the cervical canal. No subchorionic hemorrhage is identified on today's examination.. ADNEXA: The right ovary measures 3.8 x 1.2 x 1.2 cm and is normal in echogenicity. The left ovary mary sures 5.7 x 3.7 x 3.9 cm and demonstrates 2 anechoic cysts, the largest measuring 3.5 cm. FREE FLUID: None. ADDITIONAL FINDINGS: None. IMPRESSION: 1. Single, living intrauterine with estimated sonographic age of 11.6 weeks.days. 2. No definite subchorionic hemorrhage is seen on this examination. 3. Small amount of fluid within the cervical canal. Signer Name: Yasmani Wright MD Signed: 09/12/2020 10:21 PM Workstation Name: [id number]
--- NOTE | 2020-09-12 22:25 | Ultrasound Report ---
ULTRASOUND OBSTETRIC INDICATION / CLINICAL INFORMATION: bleeding. Clinical Gestational Age (GA): 12.0 weeks.days TECHNIQUE: Transvaginal. COMPARISON: 08/23/2020. FINDINGS: GESTATIONAL SAC: Well-defined oval shape and intrauterine in location. YOLK SAC: No significant abnormality. EMBRYO/FETUS: No significant abnormality. - [place]-Rump Length = 5.2 cm = 11.6 weeks.days - Heart Rate, beats per minute (if present) = 170 UTERUS: The uterus measures 14.7 x 8.3 x 8.9 cm. There is a small amount of fluid within the cervical canal. No subchorionic hemorrhage is identified on today's examination.. ADNEXA: The right ovary measures 3.8 x 1.2 x 1.2 cm and is normal in echogenicity. The left ovary mary sures 5.7 x 3.7 x 3.9 cm and demonstrates 2 anechoic cysts, the largest measuring 3.5 cm. FREE FLUID: None. ADDITIONAL FINDINGS: None. IMPRESSION: 1. Single, living intrauterine with estimated sonographic age of 11.6 weeks.days. 2. No definite subchorionic hemorrhage is seen on this examination. 3. Small amount of fluid within the cervical canal. Signer Name: Yasmani Wright MD Signed: 09/12/2020 10:21 PM Workstation Name: [id number]
[2020-09-13 01:01] LABS: Bilirubin,Urine NEG (Negative); Blood,Urine NEG (Negative); Color,Urine Yellow (Yellow); Protein,Urine <15 mg/dL mg/dL (Negative); Urobilinogen,Urine < 2.0 mg/dL (<2.0)
--- NOTE | 2020-09-13 01:20 | Emergency Department Report ---
ED General Adult HPI - General Chief complaint: Vaginal Bleeding Stated complaint: VAGINAL BLEEDING Time Seen by Provider: 09/12/20 20:42 Source: patient, EMS Mode of arrival: Stretcher Limitations: No Limitations - History of Present Illness Initial comments: 20-year-old -[place] female patient presents with complaints of vaginal bleeding in today. She states she is approximately 12 weeks , however she has not seen an [employer] SUPERVISOR to this point. She states she passed 2 large blood clots and is concerned she is having a miscarriage. She is A1. She denies any dysuria/hematuria/urinary frequency, vaginal discharge/dyspareunia, stool changes, or fever/chills/sweats. She states the bleeding is minimal at this time and has used approximately 2 pads today. No other past medical history per patient. She does report mild lower abdominal cramping that she rates as a 3/10 in severity. - Related Data Previous Rx's Medication Instructions Recorded Last Taken Type Metoclopramide [Reglan] 10 mg PO Q12H PRN #12 tab 08/05/20 Unknown Rx 21/Iron Fu/Folic Acid 1 each PO DAILY #30 tablet 08/05/20 Unknown Rx [ Complete Caplet] Amoxicillin [Trimox CAP] 500 mg PO BID #20 capsule 08/23/20 Unknown Rx Ondansetron [Zofran Odt] 4 mg PO Q8HR PRN #10 tab.rapdis 08/23/20 Unknown Rx Allergies Allergy/AdvReac Type Severity Reaction Status Date / Time Latex, Natural Rubber AdvReac Severe Anaphylaxis Verified 02/28/19 18:11 iv contrast Allergy Severe Shortness Uncoded 02/28/19 18:11 of Breath ED Review of Systems ROS: Stated complaint: VAGINAL BLEEDING Other details as noted in HPI Constitutional: denies: chills, diaphoresis, fever, malaise, weakness Cardiovascular: denies: chest pain Genitourinary: abnormal menses. denies: urgency, dysuria, frequency, hematuria, discharge, dyspareunia Musculoskeletal: denies: back pain ED Past Medical Hx - Past Medical History Previous Medical History?: Yes Hx Hypertension: No Hx Congestive Heart Failure: No Hx Diabetes: No Hx Deep Vein Thrombosis: No Hx Renal Disease: No Hx Sickle Cell Disease: No Hx Seizures: No Hx Kidney Stones: Yes Hx Asthma: Yes Hx COPD: No Additional medical history: bronchitis, Vagianl delivery x 1 - Surgical History Past Surgical History?: Yes Hx Cholecystectomy: Yes Additional Surgical History: x 1, Lithotripsy - Social History Smoking Status: Never Smoker Substance Use Type: None - Medications Home Medications: Home Medications Medication Instructions Recorded Confirmed Last Taken Type Metoclopramide [Reglan] 10 mg PO Q12H PRN #12 tab 08/05/20 Unknown Rx 21/Iron Fu/Folic Acid 1 each PO DAILY #30 tablet 08/05/20 Unknown Rx [ Complete Caplet] Amoxicillin [Trimox CAP] 500 mg PO BID #20 capsule 08/23/20 Unknown Rx Ondansetron [Zofran Odt] 4 mg PO Q8HR PRN #10 tab.rapdis 08/23/20 Unknown Rx ED Physical Exam - General Limitations: No Limitations General appearance: alert, in no apparent distress, obese - Head Head exam: Present: atraumatic, normocephalic - Eye Eye exam: Present: normal appearance - Respiratory Respiratory exam: Absent: respiratory distress - Cardiovascular Cardiovascular Exam: Present: regular rate, normal rhythm - GI/Abdominal GI/Abdominal exam: Present: soft, normal bowel sounds. Absent: distended, tenderness, guarding, rebound, rigid - Extremities Exam Extremities exam: Present: full ROM - Neurological Exam Neurological exam: Present: alert, oriented X3, normal gait - Psychiatric Psychiatric exam: Present: normal affect - Skin Skin exam: Present: warm, dry, intact, normal color. Absent: rash ED Course Vital Signs 09/12/20 09/13/20 20:39 00:43 Temperature 99.2 F Pulse Rate 95 H Respiratory 18 Rate Blood Pressure 124/82 O2 Sat by Pulse 99 Oximetry ED Medical Decision Making - Lab Data Result diagrams: 09/12/20 20:58 09/12/20 20:41 Lab Results 09/12/20 09/12/20 09/12/20 Range/Units 20:41 20:41 20:58 WBC 9.1 (4.5-11.0) K/mm3 RBC 3.87 (3.65-5.03) M/mm3 Hgb 12.0 (10.1-14.3) gm/dl Hct 35.1 (30.3-42.9) % MCV 91 (79-97) fl MCH 31 (28-32) pg MCHC 34 (30-34) % RDW 13.9 (13.2-15.2) % Plt Count 174 (140-440) K/mm3 Sodium 139 (137-145) mmol/L Potassium 3.8 (3.6-5.0) mmol/L Chloride 104.0 (98-107) mmol/L Carbon Dioxide 24 (22-30) mmol/L Anion Gap 15 mmol/L BUN 10 (7-17) mg/dL Creatinine 0.7 (0.6-1.2) mg/dL Estimated GFR > 60 ml/min BUN/Creatinine Ratio 14 % Glucose 119 H (65-100) mg/dL Calcium 9.4 (8.4-10.2) mg/dL HCG, Quant 51963 H (0-4) mIU/mL Urine Color (Yellow) Urine Turbidity (Clear) Urine pH (5.0-7.0) Ur Specific [place] (1.003-1.030) Urine Protein (Negative) mg/dL Urine Glucose (UA) (Negative) mg/dL Urine Ketones (Negative) mg/dL Urine Blood (Negative) Urine Nitrite (Negative) Urine Bilirubin (Negative) Urine Urobilinogen (<2.0) mg/dL Ur Leukocyte Esterase (Negative) Urine WBC (Auto) (0.0-6.0) /HPF Urine RBC (Auto) (0.0-6.0) /HPF U Epithel Cells (Auto) (0-13.0) /HPF Blood Type Ord Rhogam Gestat Weeks WEEKS 09/12/20 09/13/20 Range/Units 20:58 Unknown WBC (4.5-11.0) K/mm3 RBC (3.65-5.03) M/mm3 Hgb (10.1-14.3) gm/dl Hct (30.3-42.9) % MCV (79-97) fl MCH (28-32) pg MCHC (30-34) % RDW (13.2-15.2) % Plt Count (140-440) K/mm3 Sodium (137-145) mmol/L Potassium (3.6-5.0) mmol/L Chloride (98-107) mmol/L Carbon Dioxide (22-30) mmol/L Anion Gap mmol/L BUN (7-17) mg/dL Creatinine (0.6-1.2) mg/dL Estimated GFR ml/min BUN/Creatinine Ratio % Glucose (65-100) mg/dL Calcium (8.4-10.2) mg/dL HCG, Quant (0-4) mIU/mL Urine Color Yellow (Yellow) Urine Turbidity Cloudy (Clear) Urine pH 7.0 (5.0-7.0) Ur Specific [place] 1.018 (1.003-1.030) Urine Protein <15 mg/dl (Negative) mg/dL Urine Glucose (UA) Neg (Negative) mg/dL Urine Ketones Neg (Negative) mg/dL Urine Blood Neg (Negative) Urine Nitrite Neg (Negative) Urine Bilirubin Neg (Negative) Urine Urobilinogen < 2.0 (<2.0) mg/dL Ur Leukocyte Esterase Neg (Negative) Urine WBC (Auto) 1.0 (0.0-6.0) /HPF Urine RBC (Auto) 3.0 (0.0-6.0) /HPF U Epithel Cells (Auto) 1.0 (0-13.0) /HPF Blood Type B POSITIVE Ord Rhogam Gestat Weeks Rh pos WEEKS - Radiology Data Radiology results: report reviewed ULTRASOUND OBSTETRIC INDICATION / CLINICAL INFORMATION: bleeding. Clinical Gestational Age (GA): 12.0 weeks.days TECHNIQUE: Transvaginal. COMPARISON: 08/23/2020. FINDINGS: GESTATIONAL SAC: Well-defined oval shape and intrauterine in location. YOLK SAC: No significant abnormality. EMBRYO/FETUS: No significant abnormality. - [place] Length = 5.2 cm = 11.6 weeks.days - Heart Rate, beats per minute (if present) = 170 UTERUS: The uterus measures 14.7 x 8.3 x 8.9 cm. There is a small amount of fluid within the cervical canal. No subchorionic hemorrhage is identified on today's examination.. ADNEXA: The right ovary measures 3.8 x 1.2 x 1.2 cm and is normal in echogenicity. The left ovary measures 5.7 x 3.7 x 3.9 cm and demonstrates 2 anechoic cysts, the largest measuring 3.5 cm. FREE FLUID: None. ADDITIONAL FINDINGS: None. IMPRESSION: 1. Single, living intrauterine with estimated sonographic age of 11.6 weeks.days. 2. No definite subchorionic hemorrhage is seen on this examination. 3. Small amount of fluid within the cervical canal. - Medical Decision Making 20-year-old -[place] female patient presents with complaints of vaginal bleeding in today. She states she is approximately 12 weeks , however she has not seen an NEWS [employer] SUPERVISOR to this point. She states she passed 2 large blood clots and is concerned she is having a miscarriage. She is A1. She denies any dysuria/hematuria/urinary frequency, vaginal discharge/dyspareunia, stool changes, or fever/chills/sweats. She states the bleeding is minimal at this time and has used approximately 2 pads today. No other past medical history per patient. She does report mild lower abdominal cramping that she rates as a 3/10 in severity. Ultrasound shows viable 11.6-week IUP without any acute abnormalities or sources of vaginal bleeding. Labs are without acute abnormalities. UA is normal. No significant abdominal tenderness appreciated on exam. Patient's vitals are normal, she is well-appearing, she is stable for discharge home. Recommend follow-up with [employer]PER[employer] within 3 to 4 days. Discussed importance of pelvic rest and activity restriction until further instructed by the NEWS PRODUCTION SUPERVISOR. Discussed strict return precautions in detail with patient who verbalized understanding. Critical care attestation.: If time is entered above; I have spent that time in minutes in the direct care of this critically ill patient, excluding procedure time. ED Disposition Clinical Impression: Vaginal bleeding during Disposition: DC-01 TO HOME OR SELFCARE Is pt being admited?: No Condition: Stable Instructions: Activity Restriction During , Vaginal Bleeding During , First Trimester Referrals: [facility] [Provider Group] - 3-5 Days
[2020-09-13 03:46] VITALS: BP 113/52
== END 2020-09-13 02:00 | disposition home or self-care (01) ==
LOC: ED 20:36
DX: O20.8 Other hemorrhage in early pregnancy (principal); J45.909 Unspecified asthma, uncomplicated; Z3A.12 12 weeks gestation of pregnancy; Z90.49 Acquired absence of other specified parts of digestive tract; Z98.890 Other specified postprocedural states; Z79.2 Long term (current) use of antibiotics; Z79.899 Other long term (current) drug therapy; Z91.040 Latex allergy status; Z88.8 Allergy status to other drugs, medicaments and biological substances
CPT/HCPCS: 36415; 76801; 76817; 80048; 81001; 84702; 85027; 86900; 86901

== ENCOUNTER 2021-12-19 09:48 | Emergency (ER) | payer OTHER ==
[2021-12-19] MEDS ORDERED: ONDANSETRON 4 MG ODT TAB PO ONE (10:25)
--- NOTE | 2021-12-19 10:30 | Event Note ---
ED Screening Note Date of service: 12/19/21 Time: 10:29 ED Screening Note: This initial assessment/diagnostic orders/clinical plan/treatment(s) is/are subject to change based on patients health status, clinical progression and re- assessment by fellow clinical providers in the ED. Further treatment and workup at subsequent clinical providers discretion. Patient/guardian urged not to elope from the ED as their condition may be serious if not clinically assessed and managed. NVD and abdominal pain for 4 days. Pain is diffuse and onset after pain. No known unusual foods. Initial orders include: My Active Orders 12/19/21 10:26 Saline lock NOW Complete Blood Count Auto Diff Stat Comprehensive Metabolic Panel Stat Lipase Stat Urinalysis Complete Stat 12/19/21 10:28 HCG Qualitative, Urine Stat
[2021-12-19 11:46] LABS: Alanine Aminotransferase 17 units/L (7-56); Albumin 4.8 g/dL (3.9-5); BUN/Creatinine Ratio 9; Basophils % (Auto) 0.1 % (0.0-1.8); Blood Urea Nitrogen 8 mg/dL (7-17); Hematocrit 41.1 % (30.3-42.9); Hemoglobin 13.5 gm/dl (10.1-14.3); Hemolysis Index 20; Lymphocytes # (Auto) 1.3 K/mm3 (1.2-5.4); Lymphocytes % (Auto) 7.3 % (13.4-35.0); Mean Corpuscular HGB Conc 33 % (30-34); Mean Corpuscular Volume 88 fl (79-97); Monocytes # (Auto) 1.3 K/mm3 (0.0-0.8); Platelet Count 170 K/mm3 (140-440); Red Blood Count 4.67 M/mm3 (3.65-5.03); Red Cell Distribution Width 14.3 % (13.2-15.2)
[2021-12-19] MEDS ORDERED: SODIUM CHLORIDE 0.9% 1000 ML 1,000 ML IV ONE (13:02)
[2021-12-19] MEDS ORDERED: MORPHINE 4 MG/1 ML INJ IV ONE (13:03)
[2021-12-19] MEDS ORDERED: PROCHLORPERAZINE EDISYLATE 10 MG/2 ML VIAL IV ONE (13:03)
[2021-12-19] MEDS ORDERED: DICYCLOMINE 20 MG/2 ML INJ IM ONE (13:04)
[2021-12-19 13:08] LABS: Bilirubin,Urine NEG (Negative); Blood,Urine NEG (Negative); Color,Urine Yellow (Yellow); Urobilinogen,Urine < 2 mg/dL (<2.0)
[2021-12-19 13:12] LABS: Mucus,Urine FEW /HPF
[2021-12-19 13:18] LABS: HCG Qualitative,Urine Negative (Negative)
--- NOTE | 2021-12-19 13:59 | Cat Scan Report ---
CT ABDOMEN AND PELVIS WITHOUT CONTRAST INDICATION / CLINICAL INFORMATION: fever, abdominal pain. TECHNIQUE: Axial CT images were obtained through the abdomen and pelvis without IV contrast. All CT scans at this location are performed using CT dose reduction for ALARA by means of automated exposure control. COMPARISON: CT from 03/09/2020 FINDINGS: LOWER CHEST: 5 mm subpleural right middle lobe nodule. This is of doubtful clinical significance. LIVER: No significant abnormality GALLBLADDER/BILIARY TREE: Cholecystectomy. PANCREAS: No significant abnormality SPLEEN: No significant abnormality ADRENALS: No significant abnormality RIGHT KIDNEY / URETER: Asymmetric right renal atrophy. Punctate nonobstructive right renal stone. No acute findings. No hydronephrosis. LEFT KIDNEY / URETER: Compensatory hypertrophy of the left kidney with 2 punctate nonobstructive left renal stones. No urolithiasis or hydronephrosis. URINARY BLADDER: No significant abnormality REPRODUCTIVE ORGANS: Tubal ligation clips. STOMACH / BOWEL: Small bowel is normal in caliber. The colon is unremarkable. The appendix is normal in caliber. LYMPH NODES: No significant adenopathy. VASCULATURE: No significant abnormality. OTHER: No free air, free fluid, or focal fluid collection is identified. SKELETAL SYSTEM: No acute osseous findings. IMPRESSION: 1. Within the limitation of this noncontrast study, there is no evidence of acute abnormality in the abdomen or pelvis. 2. 5 mm subpleural right middle lobe nodule. Recommendation according to Fleischner Society 2017 Guid elines: Guidelines do not apply: patient younger than 35 years. Persons under the age of 35 should no t receive follow-up unless there is a known primary cancer. 3. Other stable chronic and incidental findings as above. Signer Name: Walker Albarran MD Signed: 12/19/2021 1:55 PM Workstation Name: [id number]
--- NOTE | 2021-12-19 14:19 | Emergency Department Report ---
ED Abdominal Pain HPI - General Chief Complaint: Abdominal Pain Stated Complaint: STOMACH/BACK PAIN Time Seen by Provider: 12/19/21 11:02 Source: patient Mode of arrival: Ambulatory Limitations: No Limitations - History of Present Illness Initial Comments: 21 yo black female with no pmh presents to ed for evaluation of 3 day history of n/v/d, abdominal and back pain. She states that she has had a fever and romo but denies dysuria and vaginal discharge. MD Complaint: abdominal pain -: Sudden, days(s) (3) Location: diffuse Radiation: none Migration to: no migration Severity scale (0 -10): 10 Quality: cramping, aching Associated Symptoms: nausea, vomiting, diarrhea, fever. denies: dysuria, hematemesis, hematochezia, melena, hematuria, anorexia, syncope - Related Data LMP Date: 12/09/21 Previous Rx's Medication Instructions Recorded Last Taken Type Metoclopramide [Reglan] 10 mg PO Q12H PRN #12 tab 08/05/20 Unknown Rx 21/Iron Fu/Folic Acid 1 each PO DAILY #30 tablet 08/05/20 Unknown Rx [ Complete Caplet] Amoxicillin [Trimox CAP] 500 mg PO BID #20 capsule 08/23/20 Unknown Rx Ondansetron [Zofran Odt] 4 mg PO Q8HR PRN #10 tab.rapdis 08/23/20 Unknown Rx Dicyclomine [Bentyl] 20 mg PO QID PRN #30 tablet 12/19/21 Unknown Rx Famotidine [Pepcid] 40 mg PO QHS #15 tab 12/19/21 Unknown Rx Ondansetron [Zofran Odt] 4 mg PO Q8HR PRN #12 tab.rapdis 12/19/21 Unknown Rx Allergies Allergy/AdvReac Type Severity Reaction Status Date / Time Latex, Natural Rubber AdvReac Severe Anaphylaxis Verified 12/19/21 10:27 iv contrast Allergy Severe Shortness Uncoded 12/19/21 10:27 of Breath ED Review of Systems ROS: Stated complaint: STOMACH/BACK PAIN Other details as noted in HPI Comment: All other systems reviewed and negative Constitutional: fever. denies: chills Eyes: denies: eye pain, eye discharge, vision change ENT: denies: ear pain, throat pain Respiratory: denies: cough, shortness of breath, wheezing Cardiovascular: denies: chest pain, palpitations Endocrine: no symptoms reported Gastrointestinal: abdominal pain, nausea, diarrhea. denies: hematemesis, melena, hematochezia Genitourinary: denies: urgency, dysuria, frequency, hematuria, discharge Musculoskeletal: back pain. denies: joint swelling, arthralgia Skin: denies: rash, lesions Neurological: headache. denies: weakness, paresthesias Psychiatric: denies: anxiety, depression Hematological/Lymphatic: denies: easy bleeding, easy bruising ED Past Medical Hx - Past Medical History Hx Hypertension: No Hx Congestive Heart Failure: No Hx Diabetes: No Hx Deep Vein Thrombosis: No Hx Renal Disease: No Hx Sickle Cell Disease: No Hx Seizures: No Hx Kidney Stones: Yes Hx Asthma: Yes Hx COPD: No Additional medical history: bronchitis, Vagianl delivery x 1 - Surgical History Hx Cholecystectomy: Yes Additional Surgical History: x 1, Lithotripsy - Social History Smoking Status: Never Smoker Substance Use Type: None - Medications Home Medications: Home Medications Medication Instructions Recorded Confirmed Last Taken Type Metoclopramide [Reglan] 10 mg PO Q12H PRN #12 tab 08/05/20 Unknown Rx 21/Iron Fu/Folic Acid 1 each PO DAILY #30 tablet 08/05/20 Unknown Rx [ Complete Caplet] Amoxicillin [Trimox CAP] 500 mg PO BID #20 capsule 08/23/20 Unknown Rx Ondansetron [Zofran Odt] 4 mg PO Q8HR PRN #10 tab.rapdis 08/23/20 Unknown Rx Dicyclomine [Bentyl] 20 mg PO QID PRN #30 tablet 12/19/21 Unknown Rx Famotidine [Pepcid] 40 mg PO QHS #15 tab 12/19/21 Unknown Rx Ondansetron [Zofran Odt] 4 mg PO Q8HR PRN #12 tab.rapdis 12/19/21 Unknown Rx ED Physical Exam - General Limitations: No Limitations General appearance: alert, in no apparent distress - Head Head exam: Present: atraumatic, normocephalic - Eye Eye exam: Present: normal appearance - ENT ENT exam: Present: mucous membranes moist - Neck Neck exam: Present: normal inspection - Respiratory Respiratory exam: Present: normal lung sounds bilaterally. Absent: respiratory distress, wheezes, chest wall tenderness - Cardiovascular Cardiovascular Exam: Present: regular rate, normal rhythm. Absent: systolic murmur, diastolic murmur, rubs, gallop - GI/Abdominal GI/Abdominal exam: Present: soft, tenderness (generalized), normal bowel sounds. Absent: distended, guarding, rebound, rigid - Extremities Exam Extremities exam: Present: normal inspection, normal capillary refill. Absent: pedal edema, joint swelling, calf tenderness - Back Exam Back exam: Present: normal inspection - Neurological Exam Neurological exam: Present: alert, oriented X3, normal gait - Psychiatric Psychiatric exam: Present: normal affect, normal mood - Skin Skin exam: Present: warm, dry, intact, normal color. Absent: rash ED Course Vital Signs 12/19/21 12/19/21 10:23 14:30 Temperature 98.4 F Pulse Rate 90 90 Respiratory 18 18 Rate Blood Pressure 106/42 110/50 [Left] O2 Sat by Pulse 100 97 Oximetry ED Medical Decision Making - Lab Data Result diagrams: 12/19/21 11:01 12/19/21 11:01 - Radiology Data Radiology results: report reviewed, image reviewed CT abdomen and pelvis without contrast: FINDINGS: LOWER CHEST: 5 mm subpleural right middle lobe nodule. This is of doubtful clinical significance. LIVER: No significant abnormality GALLBLADDER/BILIARY TREE: Cholecystectomy. PANCREAS: No significant abnormality SPLEEN: No significant abnormality ADRENALS: No significant abnormality RIGHT KIDNEY / URETER: Asymmetric right renal atrophy. Punctate nonobstructive right renal stone. No acute findings. No hydronephrosis. LEFT KIDNEY / URETER: Compensatory hypertrophy of the left kidney with 2 punctate nonobstructive left renal stones. No urolithiasis or hydronephrosis. URINARY BLADDER: No significant abnormality REPRODUCTIVE ORGANS: Tubal ligation clips. STOMACH / BOWEL: Small bowel is normal in caliber. The colon is unremarkable. The appendix is normal in caliber. LYMPH NODES: No significant adenopathy. VASCULATURE: No significant abnormality. OTHER: No free air, free fluid, or focal fluid collection is identified. SKELETAL SYSTEM: No acute osseous findings. IMPRESSION: 1. Within the limitation of this noncontrast study, there is no evidence of acute abnormality in the abdomen or pelvis. 2. 5 mm subpleural right middle lobe nodule. Recommendation according to Fleischner Society 2017 Guidelines: Guidelines do not apply: patient younger than 35 years. Persons under the age of 35 should not receive follow-up unless there is a known primary cancer. 3. Other stable chronic and incidental findings as above. - Medical Decision Making 21 yo black female with no pmh presents to ed for evaluation of 3 day history of n/v/d, abdominal and back pain. She states that she has had a fever and romo but denies dysuria and vaginal discharge. Physical exam unremarkable, workup unremarkable and symptoms improved after mediations. Patient d/jose manuel home with zofran and bentyl and advised to follow up with pcp if worsening symptoms or return to ed. Critical care attestation.: If time is entered above; I have spent that time in minutes in the direct care of this critically ill patient, excluding procedure time. ED Disposition Clinical Impression: Gastroenteritis Disposition: HOME / SELF CARE / HOMELESS Is pt being admited?: No Does the pt Need Aspirin: No Condition: Stable Instructions: Viral Gastroenteritis, Adult, [id number], Abdominal Pain (ED) Additional Instructions: Take medications as prescribed. Increase intake of noncaffeinated fluids. Follow-up with your primary care provider if worsening symptoms. Return to the emergency department as needed. Prescriptions: Famotidine [Pepcid] 40 mg PO QHS #15 tab Dicyclomine [Bentyl] 20 mg PO QID PRN #30 tablet PRN Reason: Pain, Moderate (4-6) Ondansetron [Zofran Odt] 4 mg PO Q8HR PRN #12 tab.rapdis PRN Reason: Nausea And Vomiting Referrals: OMER BRICEÑO MD [Primary Care Provider] - 3-5 Days Time of Disposition: 14:18
[2021-12-19 18:49] VITALS: BP 110/50
== END 2021-12-19 14:30 | disposition home or self-care (01) ==
LOC: ED 09:48
DX: K52.9 Noninfective gastroenteritis and colitis, unspecified (principal); J45.909 Unspecified asthma, uncomplicated; Z90.49 Acquired absence of other specified parts of digestive tract; Z98.890 Other specified postprocedural states; Z91.040 Latex allergy status; Z79.899 Other long term (current) drug therapy
CPT/HCPCS: 36415; 74176; 80053; 81001; 81025; 83690; 85025; 96361; 96372; 96374; 96375; 99284; J0500; J0780; J2270; J7030; J3490; Q0162